=== PATIENT | female | born 1960 | race Caucasian/White ===

== ENCOUNTER → 2017-08-15 | Outpatient (CLI) | payer OTHER ==
--- NOTE | 2017-08-15 17:24 | Diagnostic Imaging Report ---
PROCEDURE:X-RAY MODIFIED BARIUM SWALLOW COMPARISON:None. INDICATIONS:R/O ASPIRATION DISCUSSION:Fluoroscopic examination was performed in conjunction with speech pathology, during swallowing of a variety of thin and thick liquid consistencies. Examination showed premature spillage to vallecula and piriform sinus with liquids only. Flash penetration into the laryngeal vestibule with thin liquids. No aspiration seen. Mild vallecular, piriform sinus, pharyngeal wall and base of tongue residue following swallows of thin liquids. CONCLUSION:Safe functional swallow. No penetration or aspiration. Please see the report from speech pathology for complete details. Joey Michael M.D. Dictated by: Joey Michael M.D. on 08/15/2017 at 17:32 Electronically approved by: Joey Michael M.D. on 08/15/2017 at 17:32
== END ==
LOC: DX 09:14
PROVIDERS: ATTEND Family Medicine
DX: R13.14 Dysphagia, pharyngoesophageal phase (principal)
CPT/HCPCS: 74230